=== PATIENT | female | born 1980 | race African-American/Black ===

== ENCOUNTER 2023-11-20 09:51 | Outpatient (CLI) | payer OTHER ==
[2023-11-20 10:42] LABS: #Basophils 0.03 10x3/uL (0.0-0.2); #Eosinphils 0.15 10x3/uL (0.0-0.5); #Monocytes 0.28 10x3/uL (0.0-1.1); #Neutrophils 1.63 10x3/uL (1.5-8.4); %Basophils 0.7 % (0.0-2.0); %Eosinophils 3.6 % (0.0-6.0); %Lymphocytes 49.5 % (18.0-47.0); %Monocytes 6.7 % (0.0-10.0); %Neutrophils 39.3 % (40.0-75.0); Hematocrit 24.8 % (34.9-44.5); Hemoglobin 7.4 g/dL (12.0-15.5); Mean Corpuscular HGB CONC 29.8 g/dL (32.0-36.0); Mean Corpuscular Hemoglobin 23.1 pg (27.0-33.0); Mean Corpuscular Volume 77.3 fL (81.6-98.3); Mean Platelet Volume 8.5 fL (7.4-10.4); Platelet Count 337 10x3/uL (150-450); RBC Distribution Width 15.9 % (11.5-14.5); Red Blood Cell (RBC) Count 3.21 10x6/uL (3.90-5.03); White Blood Cell (WBC) Count 4.2 10x3/uL (3.5-10.5)
[2023-11-20 12:08] LABS: Anion Gap 12 mmol/L (10-20); BUN (Urea Nitrogen) 10 mg/dL (7.0-18.7); Calc. Creatinine Clearance 0 mL/min (70-130); Calcium 8.6 mg/dL (7.8-10.44); Carbon Dioxide 22 mmol/L (22-29); Chloride 107 mmol/L (98-107); Estimated GFR 93; Glucose 84 mg/dL (70-105); Potassium 3.8 mmol/L (3.5-5.1); Sodium 137 mmol/L (136-145)
== END 2023-11-20 09:52 | disposition home or self-care (01) ==
LOC: CSHLAB 09:51
PROVIDERS: ATTEND Surgery
DX: Z01.812 Encounter for preprocedural laboratory examination (principal); K43.9 Ventral hernia without obstruction or gangrene
CPT/HCPCS: 80048; 85025

== ENCOUNTER 2023-11-24 05:58 | Day surgery (SDC) | payer OTHER ==
[2023-11-20 10:24] VITALS: BMI 23.3
[2023-11-24] MEDS ORDERED: Bupivacaine/Epinephrine 0.25% 30 ML VIAL ONE (06:26)
[2023-11-24] MEDS ORDERED: CEFAZOLIN 2 GM VIAL ONE (07:22)
[2023-11-24 07:40] LABS: Hematocrit 24.8 % (34.9-44.5); Hemoglobin 7.4 g/dL (12.0-15.5)
[2023-11-24] MEDS ORDERED: PROPOFOL 20 ML ONE ×2 (08:19→09:43)
[2023-11-24] MEDS ORDERED: Lidocaine 1% PF 5 ML VIAL ONE (08:22)
[2023-11-24] MEDS ORDERED: Rocuronium Bromide 10 MG/ML (10ML VIAL) ONE (08:22)
[2023-11-24] MEDS ORDERED: fentaNYL 50 mcg/mL 1 mL Vial ONE (09:42)
[2023-11-24] MEDS ORDERED: MINERAL OIL/WHITE PETROLATUM 3.5 GM TUBE ONE (10:07)
[2023-11-24] MEDS ORDERED: Dexamethasone 4 mg/ml Vial ONE (10:07)
[2023-11-24] MEDS ORDERED: SUGAMMADEX SODIUM 200 MG/2 ML VIAL ONE (10:27)
[2023-11-24] MEDS ORDERED: PHENYLEPHRINE-NS 100 MCG/ML 10 ML SYRINGE ONE (10:27)
[2023-11-24] MEDS ORDERED: Ondansetron PF 4 MG/2 ML Vial ONE (10:27)
[2023-11-24] MEDS ORDERED: HYDROcodone/Acetaminophen 5/325 mg Tablet ONE (12:03)
== END 2023-11-24 12:30 | disposition home or self-care (01) ==
LOC: CSHSDC 05:58
PROVIDERS: ATTEND Surgery
PROC: 0WUF4JZ Supplement Abdominal Wall with Synthetic Substitute, Percutaneous Endoscopic Approach (ICD-10-PCS; principal; 2023-11-24)
DX: K43.9 Ventral hernia without obstruction or gangrene (principal); D64.9 Anemia, unspecified
CPT/HCPCS: 36415; 85014; 85018; 86850; 86900; 86901; C1781; J1100; J2405; J2704; J3010